=== PATIENT | male | born 1970 | race Caucasian/White ===

== ENCOUNTER 2017-08-30 18:29 | Inpatient (IN) | payer BC, OTHER ==
[~2017-08-30] VITALS: Ht 177.8 cm; Wt 63.5 kg
[2017-08-30 20:00] VITALS: BP 124/75
[2017-08-30] MEDS ORDERED: MIRALAX 17 GM POWD.PACK PO PRN (20:15)
[2017-08-30] MEDS ORDERED: diphenhydrAMINE 50 MG CAPSULE PO PRN (20:15)
[2017-08-30] MEDS ORDERED: LOPERAMIDE HCL 2 MG CAPSULE PO PRN ×2 (20:15)
[2017-08-30] MEDS ORDERED: LORAZEPAM 1 MG TABLET PO PRN ×2 (20:15)
[2017-08-30] MEDS ORDERED: BUPRENORPHINE HCL 2 MG TAB.SUBL SL PRN (20:15)
[2017-08-30] MEDS ORDERED: ACETAMINOPHEN 325 MG TABLET PO PRN (20:15)
[2017-08-30] MEDS ORDERED: MAGNESIUM HYDROXIDE 30 ML LIQUID UDC PO PRN (20:15)
--- NOTE | 2017-08-30 20:25 | NUR ---
Admission Note Patient is a 47-year-old, male, arrived to the floor at 1927 to be admitted for medically supervised withdrawal from Alcohol (Early) and Opiates (Heroin). The patient appears intoxicated from Heroin as he stated that he smoked 1.5 gm today at 1600. However, he is not intoxicated from Alcohol, with last drink yesterday at 2200, had 90 ml of Early. Patient verbalized that he is starting to experience withdrawal symptoms from Alcohol use, with symptoms assessed as follows: flushed skin, increasing anxiety, photosensitivity, tremors and feeling of fatigue. Patient appears calm but noted to be melancholic, isolative and in a depressed mood, tearfully saying I hope I can do this. Its making me anxious. My family is getting affected by my addiction. My is starting to give up on me and I fear that she might leave and take my kids away. I am just done. Pt is AAOx4. The patient states that withdrawal symptoms include "anxiety, fatigue, restless legs, emotional volatility, goosebumps, nausea, vomiting, teary eyes and photo sensitivity." Patient denies any history of seizures, but stated that he experienced multiple episodes of delirium and blackouts from drinking alcohol. He could not recall the exact date of his last blackout and delirium but said that it happened in this month of August. Patient also informed that he has been to multiple detox and treatment centers, verbalized about 40 times. He stated that he only could recall the last 3 facilities where he was from: 1) [facility] in [facility] to June 2017 x 25 days, 2) [facility] in [place], [place]--February 2017 x 1 week and in January 2017 x 1. Patient explained that after getting discharged from [facility] in June of this year, he went to [facility] and relapsed after about 1-2 weeks in IOP. He tried to quit on his own after using for about 1 week but he said that he could only last a maximum of 3 days being sober. So, per patient, since mid to end July, substance use are as follows: 1. Alcohol: Early- Patient stated that he is drinking about 750 ml or a fifth of Early daily for 3-4 weeks. He had his first drink at age 11, citing influence from peers. He stated that he tried various types of alcohol, including Vodka and Tequila, but eventually developed a liking to Early. Last drink was on 08/19/2017 at 2200, 90 ml of Early. 2. Heroin- Patient stated that he first used at age 16. He verbalized that he first tried this substance to fit in because my friends have been using it. For the past 3-4 weeks, he has been using 1.5-2 gm via oral inhalation daily, last use was today, 08/30/2017 at 1600. 1.5 gm via oral inhalation. 3. Cannabis-Patient stated that he first used at age 11. Patient stated that he uses via oral inhalation daily, about 1-1.5 gm, for the past 3-4 weeks. Last use was today, 08/30/2017 at 1700, 1 gm via oral inhalation. Patient verbalized that none of his immediate family members have substance use disorders. Patient stated the he never used needles at all related to his Heroin use. He stated that he only smoked it. Patient stated that his Primary Care Physician is Dr. Adler at [place], [place]. He is seeking treatment today because "" I think I am at the point of my life where I should be looking at my future, about growing old healthy and being there for my and kids. In addition patient also fears that if he continues with his substance use, he would lose his family: "My gave me an ultimatum that if I dont quit, she will leave me and take the kids away. Patient also said that he wants to stop using everything because using the substances and drinking are giving him more anxiety due to ruined relationships with friends and family. His longest sobriety was 45 days achieved in 2007. Patient verbalized that he is interested in going to a treatment center after his stay at [facility]. Patient's main support system are his and some family. Vital signs are taken and as follows: BP: 133/94, HR: 87, RR: 20, SpO2: 98%, Temp: 98.7. Pulse is palpable and regular. Respirations are even and unlabored. Lung sounds clear. Bowel sounds active x4 quadrants. Last bowel movement was in the morning of today, 08/30/2017. Per patient, his bowel movement is mostly every day. No abdominal pain reported. Skin is intact. Pt follows a regular diet at home. NKA. Full Code. Height is 5'10", 140 lbs per standing scale. Patient stated that he smokes about 1 pack of [place] Ultra Lights daily. Patient stated that his medical history are Anxiety, Asthma and Kidney Stones (1986). Patient that he only has Proair HFA Inhaler as home med where the takes BID PRN for SOB. Educated patient about plan of care including detox, group therapy, individual therapy, and discharge planning. Encouraged patient to be open and honest and verbalized support for patient in her recovery. Upon admission to the floor, CIWA=13, COWS is deferred because of Heroin intoxication status. Dr. Oliva was at the unit and was able to assess the patient. Will continue to monitor.
--- NOTE | 2017-08-30 20:30 | NUR ---
Additional Medical History Patient was further asked of his medical history and he verbalized that though he has no history of seizures, he experienced multiple withdrawal-induced delirium from drinking Alcohol ([place]) and as well as blackouts.
[2017-08-30] MEDS ORDERED: ALBU8.5H8 IH (21:26)
[2017-08-30] MEDS: MULTIVITAMINS,THERAPEUTIC TABLET PO SCH (21:27)
--- NOTE | 2017-08-30 21:30 | NUR ---
COWS deferred, only CIWA assessed Pt is still intoxicated from Heroin, having only administered the substance today at 1600. Pt was only assessed of CIWA=13, with increasing anxiety, tremors, photosensitivity and tremors noted.
[2017-08-30 22:46] LABS: BASOPHILS # (AUTO) 0.1 K/uL (0.0-8.0); BASOPHILS % (AUTO) 1.1 % (0.0-2.0); EOSINOPHILS # (AUTO) 0.2 K/uL (0.0-0.7); HEMATOCRIT 41.9 % (36.7-47.1); LYMPHOCYTES # (AUTO) 1.9 K/uL (20.0-40.0); LYMPHOCYTES % (AUTO) 32.1 % (20.5-51.5); MEAN CORPUSCULAR HEMOGLOBIN 30.4 uug (23.8-33.4); MEAN CORPUSCULAR HGB CONC 33 g/dL (32.5-36.3); MEAN CORPUSCULAR VOLUME 90.9 fL (73.0-96.2); MONOCYTES # (AUTO) 0.5 K/uL (2.0-10.0); MONOCYTES % (AUTO) 8.4 % (0.0-11.0); NEUTROPHILS # (AUTO) 3.2 K/uL (1.8-8.9); NEUTROPHILS % (AUTO) 55.4 % (38.5-71.5); PLATELET COUNT (AUTO) 171 K/uL (152-348); RED BLOOD CELL COUNT(AUTO) 4.61 MIL/uL (4.06-5.63); WHITE BLOOD COUNT (AUTO) 5.8 K/uL (3.6-10.2)
[2017-08-30 22:53] LABS: ALANINE AMINOTRANSFERASE 18 U/L (16-63); ALKALINE PHOSPHATASE 58 U/L (50-136); AMYLASE 45 U/L (25-115); ASPARTATE AMINOTRANSFERASE 12 U/L (15-37); BILIRUBIN,TOTAL 0.3 mg/dL (0.2-1.0); CARBON DIOXIDE 28 mmol/L (21-32); CHLORIDE 106 mmol/L (98-107); CREATININE 0.8 mg/dL (0.6-1.3); GLUCOSE 85 mg/dL (74-106); LIPASE 94 U/L (73-393); MAGNESIUM 2.3 mg/dL (1.8-2.4); POTASSIUM 4.3 mmol/L (3.5-5.1); TOTAL PROTEIN, SERUM 6.2 g/dL (6.4-8.2); UREA NITROGEN, BLOOD 16 mg/dL (7-18)
[2017-08-30 23:01] LABS: ETHANOL < 3 MG/DL (0-0)
[2017-08-31] VITALS: BP 108/65
[2017-08-31] MEDS ORDERED: 5 DAY TAPER OF LORAZEPAM -SERENITY PROTOCOL PO PRN
--- NOTE | 2017-08-31 03:08 | NUR ---
RN note PRN Ativan Patient c/o increasing anxiety, easy agitation, tremors and photosensitivity. CIWA=13. Administered Ativan 2 mg PO PRN as ordered. Will reassess.
[2017-08-31 03:55] LABS: *AMPHETAMINE, URINE NEGATIVE (NEGATIVE); *BARBITURATE, URINE NEGATIVE (NEGATIVE); *CANNABINOID, URINE POSITIVE (NEGATIVE); *COCCAINE, URINE NEGATIVE (NEGATIVE); *OPIATE, URINE POSITIVE (NEGATIVE); *PHENCYCLIDINE SCREEN,URINE NEGATIVE (NEGATIVE)
[2017-08-31 04:00] VITALS: BP 97/62
--- NOTE | 2017-08-31 04:05 | NUR ---
RN note Ativan reassess Patient verbalized that his anxiety level has decreased and verbalized: "I feel better now. I am not anxious as much." CIWA=11. Addendum: 08/31/17 at 0547 by PHILIP MEJÍA RN Correction: CIWA=10
--- NOTE | 2017-08-31 07:16 | NUR ---
End of Shift Patient continues to have tremors, with anxiety, difficulty concentrating and noted to be isolative, melancholic and in depressed mood. Patient with restless legs and c/o fatigue. Patient also noted to be disheveled and with strong body odor. Encouraged patient to take a shower this morning. Patient verbalized: Im not in the mood to do anything today. I feel low. Provided education on importance of adhering to the plan of care. Fall, universal, seizure and safety prec in place the whole shift. Call light within reach. Latest COWS=5, CIWA=10, slept for 6 hours. Endorsed to AM shift nurse for continuity of care.
--- NOTE | 2017-08-31 07:30 | NUR ---
Start of Shift Pt. is a 47 y/o male admitted for the medically managed withdrawal from ETOH and Opiates. Pt. placed on a 5 day subutex and a 5 day ativan taper to manage withdrawal symptoms which is set to start this morning. Endorse from previous shift that pt. presented with anxiety, restlessness, tremors, difficulty concentrating, malodorous with a sad affect. Received pt. in room laying in bed with eyes closed. Pt. breathes are even and symmetrical with no signs on SOB noted. Pt.'s room is cluttered with belongings, and food containers. Pt. responds to name but just goes back to sleep. Last COW's 5 and CIWA 10. Pt. slept for 7 hours. Safety measures in place. Will continue to monitor pt.'s behavior for safety.
[2017-08-31 08:00] VITALS: BP 92/50
--- NOTE | 2017-08-31 08:00 | NUR ---
COW's/CIWA Assessment COW's 5, CIWA 9. Pt. presents with anxiety, mild aches, flush facial skin, and some light sensitivity. Pt. states that he still doesn't feel bad enough to want his subutex. Pt. did comply however with his Ativan and the rest of his mediation regiment. Will continue to monitor pt.'s behavior for safety.
[2017-08-31] MEDS: BUPRENORPHINE HCL 2 MG TAB.SUBL SL SCH ×4 (09:00→22:00)
[2017-08-31] MEDS: DOCUSATE SODIUM 250 MG CAPSULE PO SCH (09:00)
[2017-08-31] MEDS ORDERED: TUBERCULIN,PURIF.PROT.DERIV. 5 TU/0.1 ML TEST ID ONE (09:00)
[2017-08-31] MEDS: LORAZEPAM 1 MG TABLET PO SCH ×4 (09:43→20:17)
[2017-08-31] MEDS: MULTIVITAMINS,THERAPEUTIC TABLET PO SCH (09:43)
[2017-08-31 12:00] VITALS: BP 102/67
--- NOTE | 2017-08-31 12:00 | NUR ---
COW's/CIWA Assessment COW's 7, CIWA 9. Pt. presents with anxiety, mild aches, flush facial skin, fine hand tremors, and stomach cramps. Pt. offered PRN's and scheduled medications but refused both. aware. Will continue to monitor pt.'s behavior for safety.
--- NOTE | 2017-08-31 13:50 | NUR ---
Medication Refusal Pt. laying in bed with eyes closed. no signs of SOB noted. Pt. offered scheduled Ativan 2mg, and Subutex 4mg at this time but refused both medications. Pt. states "I feel a little crappy but not in a way I can describe. I still feel the effects of the last Ativan." Pt. has been laying in bed the entire shift. MD aware of medication refusal. Will continue to monitor pt.'s behavior for safety.
[2017-08-31] MEDS ORDERED: ALBUTEROL SULFATE 2.5 MG/ 0.5 ML NEBU NEB PRN (14:30)
[2017-08-31 16:00] VITALS: BP 98/60
[2017-08-31] MEDS ORDERED: 5 DAY TAPER BUPRENORPHINE -SERENITY PROTOCOL SL PRN (16:00)
--- NOTE | 2017-08-31 16:00 | NUR ---
COW's/CIWA Assessment COW's 10, CIWA 12. Pt. presents with anxiety, mild aches, flush facial skin, fine hand tremors, and stomach cramps. Pt. offered PRN's and scheduled medications but refused his subutex only and took his ativan. Pt. states that he's afraid he doesn't feel bad enough to need subutex. Pt. educted on medication regiment but still he refused his subutex. aware. Will continue to monitor pt.'s behavior for safety.
--- NOTE | 2017-08-31 19:12 | NUR ---
End of Shift Pt. is a 47 y/o male admitted for the medically managed withdrawal from ETOH and Opiates. Pt. placed on a 5 day subutex and a 5 day ativan taper to manage withdrawal symptoms which is set to start this morning. Throughout shift pt. presented with anxiety, restlessness, tremors, difficulty concentrating, malodorous with a sad affect, light sensitivity, and stomach cramps. Pt. remained in room sleeping for the majority of the shift, and refused Subutex during the entire shift stating that he was not yet sick enough to want it. Last COW's 10 and CIWA 12. No PRN's given during shift. Safety measures in place. Will endorse pt.'s behavior to oncoming shift.
[2017-08-31 20:00] VITALS: BP 108/70
--- NOTE | 2017-08-31 20:00 | NUR ---
Start of Shift Pt is a 47 year old male admitted for ETOH/Heroin withdrawal placed on a 5 Ativan taper and 5 day Subutex taper. At time of assessment, pt presents in room, in bed, appears flushed, skin clammy, sweaty, is odorous, reports anxiety, worried demeanor, restlessness, light sensitivity, difficulty concentrating. CIWA 12, COWS 9 scheduled medications due. Safety measures in place, will continue to monitor.
--- NOTE | 2017-08-31 21:30 | NUR ---
Subutex Refusal Pt refused scheduled Subutex. Pt reports, "I don't want to take the Subutex yet. If I do I'll get sick, and I don't want to feel that way". COWS 9, Pt was educated on medications regimen and risks/benefits scheduled medications. However, pt continued to refuse. safety measures in place, will continue to monitor.
[2017-09-01] VITALS: BP 102/69
--- NOTE | 2017-09-01 | NUR ---
CIWA/COWS deferred due to pt sleeping, to be assess while pt is awake as ordered. Pt is in bed, sleeping, respirations even/unlabored. Safety measures in place, will continue to monitor.
[2017-09-01] MEDS: HYDROXYZINE PAMOATE 25 MG CAPSULE PO PRN ×2 (03:34→13:09)
[2017-09-01] MEDS: METHOCARBAMOL 750 MG TABLET PO PRN ×2 (03:36→13:09)
[2017-09-01 03:40] VITALS: BP 100/79
--- NOTE | 2017-09-01 03:40 | NUR ---
COWS/CIWA COWS 8 & CIWA 9 - Pt reported feeling anxious, body aches 5/10, skin clammy and flushed with tremors noted. Pt requested Vistaril 25mg and Robaxin 750mg- medications administered. Safety measures in place, will continue to monitor.
--- NOTE | 2017-09-01 04:40 | NUR ---
COWS/CIWA Upon reassessment, pt is noted to be sleeping, respirations even/unlabored. Safety measures in place, will continue to monitor.
--- NOTE | 2017-09-01 07:20 | NUR ---
End of Shift Pt is a 47 year old male admitted for ETOH/Heroin withdrawal placed on a 5 Ativan taper and 5 day Subutex taper. During shift, pt presented in room in be all throughout shift, appeared flushed, skin clammy, sweaty, odorous, reports anxiety, worried demeanor, restlessness, light sensitivity, difficulty concentrating, at 2000 CIWA 12, COWS 9, scheduled medications administered, however pt refused scheduled Subutex pt was educated on risks/benefits of medications. At 0340, Robaxin 750mg PRN and Vistaril 25mg PRN administered. Pt slept for 9 hours, intake of 800 ml and voids x2. Safety measures in place, endorsed to day shift nurse.
--- NOTE | 2017-09-01 07:25 | NUR ---
Start of Shift Note Pt. is a 47 y/o male admitted for the medically managed withdrawal from ETOH and opiates. Pt. was placed on a 5 day subutex and ativan taper to managed withdrawal symptoms. Pt. is on his second day of his taper but refused his Subutex taper yesterday because he was afraid of precipitated withdrawals. Endorse pt. presented during previous shift with flushed skin, diaphoresis, odorous, anxiety, restlessness, light sensitivity, and difficulty concentrating. Pt.s last COWs 9 and CIWA of 12 at 1999. PRN Vistaril, and Robaxin given during previous shift. Received pt. in room. Pt. laying in bed with eyes closed. No signs of SOB noted. Safety measures in place. Will continue to monitor pt.s behavior for safety.
[2017-09-01 08:00] VITALS: BP 114/69
--- NOTE | 2017-09-01 08:00 | NUR ---
COW's/CIWA assessment COW's 10. CIWA 11. Pt. laying in bed with eyes closed. Pt. presents with flushed skin, restlessness, fine hand tremors, piloerection, and diaphoresis. Pt. reports mild body aches and some increased anxiety. Pt. states he is willing to take his Ativan dose as ordered but is refusing the Subutex still. Pt. state " I know my body and I know if I take a Subutex now I'll go into precipitated withdrawals." Pt. educated on medication regiment and treatment plan. Pt. states he is willing to take his next dose of Subutex at 1300 today. aware. Will continue to monitor pt.'s behavior for safety.
[2017-09-01] MEDS: MULTIVITAMINS,THERAPEUTIC TABLET PO SCH (08:30)
[2017-09-01] MEDS: LORAZEPAM 1 MG TABLET PO SCH ×3 (08:31→21:24)
[2017-09-01] MEDS: BUPRENORPHINE HCL 2 MG TAB.SUBL SL SCH ×3 (08:56→22:00)
[2017-09-01] MEDS: DOCUSATE SODIUM 250 MG CAPSULE PO SCH (08:56)
[2017-09-01 10:08] LABS: HEPATITIS B SURFACE AG Negative (Negative)
[2017-09-01 12:00] VITALS: BP 143/104
--- NOTE | 2017-09-01 12:00 | NUR ---
COW's/CIWA assessment COW's 13. CIWA 14. Pt. in room pacing. Pt. presents with flushed skin, restlessness, fine hand tremors, piloerection, and diaphoresis. Pt. reports mild body aches and some increased anxiety. Pt. states that he will comply with all medications now. Will administer taper as ordered. Will continue to monitor pt.'s behavior for safety.
[2017-09-01] MEDS: DICYCLOMINE HCL 20 MG TABLET PO PRN ×2 (13:09→21:27)
[2017-09-01] MEDS: CLONIDINE HCL 0.1 MG TABLET PO PRN (13:09)
--- NOTE | 2017-09-01 13:09 | NUR ---
PRN Medications Pt. in room pacing complaining of muscle aches and anxiety. Pt. states "I feel like my skin is crawling and I feel like crap." At this time gave pt. PRN Vistaril, Bentyl, Robaxin, and Clonidine. Will continue to monitor pt. for medication effectiveness and safety.
--- NOTE | 2017-09-01 13:56 | NUR ---
PRN Medication Re-Assessment Pt. in room laying down with his eyes closed. Pt. states that he does feel better but not by much. He still reports anxiety, restlessness, and body aches. Pt. states however that now he is ready to begin taking his subutex. Will administer as ordered. Will continue to monitor pt.'s behavior for safety.
[2017-09-01 16:00] VITALS: BP 116/78
--- NOTE | 2017-09-01 16:00 | NUR ---
COW's/CIWA assessment COW's 15. CIWA 15. Pt. in room pacing. Pt. presents with flushed skin, restlessness, fine hand tremors, and diaphoresis. Pt. reports severe body aches and increased anxiety. Pt.compliant with last Subutex and Ativan doses of his tapers. Pt. currently prefers to stay in his bed. Will continue to monitor pt.'s behavior for safety
[2017-09-01] MEDS: IBUPROFEN 600 MG TABLET PO PRN (17:42)
--- NOTE | 2017-09-01 17:42 | NUR ---
PRN Medication Pt. in room complaining of 7/10 generalized body pain. Pt. given Motrin 600mg P.O. at this time. Will continue to monitor pt.'s behavior for medication effectiveness and safety.
[2017-09-01] MEDS ORDERED: BUPRENORPHINE HCL 2 MG TAB.SUBL SL ONE (18:30)
--- NOTE | 2017-09-01 18:35 | NUR ---
COW's Assessment Cow's 18. Pt. in room complaining of sever body aches, anxiety, restlessness and irritability. Pt. presents with flushed skin, constantly fidgeting, yawning and diaphoresis. MD aware and ordered Subutex 4mg X1 to be given now. Will continue to monitor pt. for safety.
--- NOTE | 2017-09-01 18:36 | NUR ---
PRN Medication/Re-Assessment Pt. still complaining of severe body aches and generalized body pain 10/17. Motrin not effective. called and received a 1 time dose of Subutex 4mg to be given to the pt. now. Subutex administered. Pt.'s current COW's at 18. Will continue to monitor pt. for medication effectiveness and safety.
--- NOTE | 2017-09-01 19:09 | NUR ---
End of Shift Note Pt. is a 47 y/o male admitted for the medically managed withdrawal from ETOH and opiates. Pt. was placed on a 5 day subutex and ativan taper to managed withdrawal symptoms. Pt. is on his second day of his taper but refused his first dose of subutex this morning. Pt. became compliant with his medication regiment as his symptoms became worst. Taking both the 1500 ativan and subutex dose. PRN Clonidine, Robaxin, Vistaril, Motrin and Bentyl where given to manage withdrawal symptoms. Pt. continue to complain of sever generalized body pain. made aware and ordered a one time dose of Subutex 4mg that was given at 1836. Throughout shift pt. presented with flushed skin, diaphoresis, piloerection, anxiety, restlessness, severe body aches, congestion and difficulty concentrating. Pt.s last COWs 18 at 1835 and CIWA of 15 at 1600. Safety measures in place. Will endorse pt.s behavior to oncoming shift.
--- NOTE | 2017-09-01 19:30 | NUR ---
Start of Shift Patient Received. Per endorsement, patient continues on 5 day Ativan and 5 day Subutex taper. Patient has been noted to be refusing ordered Subutex medication, he took his first dose of Subutex today at 1500. A second dose of Subutex was given at 1840. He was reported to be isolative to room and non compliant with group and social activities. Upon rounds patient is noted in his room with eyes closed. Breathing even and non labored. Patients room is noted to be odorous, unkept, dirty finger nails, food and drinks noted throughout the room. One time dose of Subutex 4mg noted to be effective in minimizing signs and symptoms of withdrawal. All needs attended to promptly. Will continue plan of care as ordered.
[2017-09-01 21:20] VITALS: BP 110/85
[2017-09-01] MEDS: ONDANSETRON ODT 4 MG TAB.RAPDIS SL PRN (21:27)
--- NOTE | 2017-09-01 21:30 | NUR ---
PRN Medication Administration Patient is requesting for PRN Zofran due to ordered Subutex cause nausea. Patient is also reporting increased stomach cramps. PRN Zofran and Bentyl administered. Will continue to monitor.
--- NOTE | 2017-09-01 22:00 | NUR ---
PRN Medication Reassessment Patient was given routine order of Subutex and able to tolerate well. PRN Zofran effective in minimizing nausea. Patient verbalized "I dont understand why Im not getting routine Gabapentin. I take 400mg three times a day. I haven't received any doses. That's what helps my restless legs." relayed to CN to relay to MD. Patient is also verbalizing "I need something for sleep because I haven't been sleeping well." Patient verbalized of taking Remeron 15mg. Relayed to Psychiatrist with new order of Remeron 15mg QHS. Will administer accordingly.
[2017-09-01] MEDS: MIRTAZAPINE 15 MG TABLET PO SCH (23:52)
[2017-09-02] VITALS (7 sets, daily range): BP systolic 98–130; BP diastolic 54–85
[2017-09-02] MEDS: CLONIDINE HCL 0.1 MG TABLET PO PRN ×2 (01:08→23:13)
[2017-09-02] MEDS: HYDROXYZINE PAMOATE 25 MG CAPSULE PO PRN ×2 (01:08→23:12)
[2017-09-02] MEDS: METHOCARBAMOL 750 MG TABLET PO PRN (01:08)
--- NOTE | 2017-09-02 01:10 | NUR ---
PRN Medication Administration Patient is noted verbalizing increased chills and sweats, increased anxiety, and muscle aches. PRN Robaxin, Clonidine, and Vistaril administered. Will continue to monitor.
[2017-09-02] MEDS: MAG HYDROX/AL HYDROX/SIMETH 30 ML LIQUID UDC PO PRN (01:55)
[2017-09-02] MEDS: IBUPROFEN 600 MG TABLET PO PRN (01:59)
--- NOTE | 2017-09-02 02:05 | NUR ---
PRN Medication Reassessment/PRN Medication Administration Patient is noted verbalizing increased heart burn and pain 6/10 to bilateral knees. PRN Robaxin, clonidine, and Vistaril noted not effective. PRN Motrin and Maalox administered. Will continue to monitor.
--- NOTE | 2017-09-02 03:00 | NUR ---
PRN medication Reassessment Patient is noted in bed, awake and is able to verbalize "the medication helped with the heartburn and helped to minimize pain." PRN Motrin and Maalox noted to be effective. Will continue to monitor.
[2017-09-02] MEDS ORDERED: LORAZEPAM 1 MG TABLET PO ONE (04:15)
--- NOTE | 2017-09-02 04:34 | NUR ---
PRN Medication Administration Patient is noted verbalizing increased anxiety, restlessness, agitation, tremulous, light sensitivity, sweats and chills. Relayed to MD with new order for one time dose of Ativan 2mg. Will continue to monitor.
--- NOTE | 2017-09-02 05:29 | NUR ---
PRN Medication Reassessment Patient is noted awake and requesting coffee. educated patient on caffine possibly increased anxiety. Patient verbalized "its not going to matter that I got the Ativan now because mann been awake this whole time. Im just going to stay up." explained to patient that medication was gien to him to help to make him comfortable and patient stated "The medication helped take the edge off. but I'm just going to stay awake." PRN Ativan 2mg noted to be effective. Will continue to monitor.
--- NOTE | 2017-09-02 07:35 | NUR ---
End of Shift Patient is noted in his room, awake, alert and verbally responsive. Breathing even and non labored. Patient continues on modified Subutex taper and modified Ativan taper. patient received PRN Zofran, Bentyl, Clonidine, Vistaril, Robaxin, Maalox, Motrin, and a onetime dose of Ativan 2mg due to elevated CIWA. Medications noted to be intermittently effective. Patient was educated on drinking caffeine after receiving medications and patient was noted to state "its not going to matter that I got the Ativan now because mann been awake this whole time. Im just going to stay up." Last noted COWS 7 and CIWA 8. Patient noted to sleep a total of 4 hours. All needs attended to promptly. Will continue plan of care as ordered.
--- NOTE | 2017-09-02 07:52 | NUR ---
START OF SHIFT Rcvd endorse from ongoing nurse, client is in room, he sounds asleep, easy to arouse, he appears disheveled. flushed face, clammy skin, and goosebump noted. He stated, "I have not sleep, so just please let me sleep, I'll answer your questions later." PRN medications administered overnight Zofran 4mg SL for nausea, Bentyl 20mg PO for abdominal spasms, Clonidine 0.1mg PO for anxiety, Vistaril 25mg PO for anxiety, Robaxin 750mg PO for myalgia, Ativan 2mg PO for anxiety, Maalox 30mL PO for heartburn, Motrin 600mg PO for pain to bilateral knees all noted per protocol. Client is on seizure precautions. Side rails x 1 up (R side), he said in a pressured voice, "Do not touch anything, just let me sleep." Call light within reach. Will continue to monitor.
[2017-09-02] MEDS ORDERED: ENSURE WITH FIBER 237 ML LIQUID (CHOCOLATE) PO SCH (08:00)
[2017-09-02] MEDS: DOCUSATE SODIUM 250 MG CAPSULE PO SCH (09:00)
[2017-09-02] MEDS ORDERED: BUPRENORPHINE HCL 2 MG TAB.SUBL SL SCH (09:00)
[2017-09-02] MEDS: LORAZEPAM 1 MG TABLET PO SCH ×4 (09:16→21:05)
[2017-09-02] MEDS: MULTIVITAMINS,THERAPEUTIC TABLET PO SCH (09:16)
--- NOTE | 2017-09-02 09:16 | NUR ---
CIWA 16/COWS 16 Client appears disheveled, strong body odor, undernourished, avoidant gaze, temporal waste, he is not wearing upper denture, he stated, "No, that one bothers me, I'm waiting for another one that fits." Client reports anxiety, agitation, restlessness, tremor, nausea, abdominal cramps, hypervigilance, sense of panic, sweats, cold,chills, headache, restless legs, generalized body discomfort, and fatigue. Ativan 1mg PO administered, he will take Subutex 4mg SL when he comes back from the patio. Call light within reach
--- NOTE | 2017-09-02 09:45 | NUR ---
Zero induration noted at L forearm PPD site.
--- NOTE | 2017-09-02 12:52 | NUR ---
CIWA 15 /COWS 15 Client continues to present with anxiety, agitation, depressed mood, flat affect, avoidant gaze, clammy skin, he reports nausea, headache, generalized body aches, sense of panic, restless legs, decreased acetate, nausea, stomach cramps, and fatigue. Ativan 1mg PO administered. Call light within reach
[2017-09-02] MEDS: BUPRENORPHINE HCL 2 MG TAB.SUBL SL SCH ×2 (16:16→21:05)
--- NOTE | 2017-09-02 16:24 | NUR ---
CIWA 14 /COWS 15 Client continues to present with anxiety, agitation, he tends to isolate in his room, clammy skin, he reports nausea, headache, generalized body aches, sense of panic, restless legs, nausea, stomach cramps, and lack of pleasure on daily activities. Ativan 1mg PO administered. Call light within reach
--- NOTE | 2017-09-02 19:23 | NUR ---
END OF SHIFT Endorse client to incoming nurse, client is in room, he is a/o x 4, he continues to present with depressed mood, flat affect, anxiety, irritability, anhedonia, restless legs, and fatigue. Last CIWA 15 @ 1600. Client needs encouragement to attend group therapy. Adequate PO fluid intake 2540mL, void x 6, stool x 1. Client consumes 50-75% of meals. Seizure precautions. Call light within reach.
--- NOTE | 2017-09-02 19:30 | NUR ---
START OF SHIFT Pt is a 47 y/o male admitted on 08/30/17 for ETOH and opiate withdrawal. Pt to continue a 5 day Ativan and 5 day Subutex taper. Upon rounds Pt presented with depressed mood, flat affect, anxiety, irritability, anhedonia, restless legs, and fatigue. Last CIWA 14 COWS 15. Pt stated, "I am unhappy with the taper I am on" and "I am not motivated to get clean right now." Pt is a high risk for AMA. Charge nurse was made aware. Will endorse to day shift and administration. Scheduled medication due. Safety measures in place. Call light within reach. Will continue to monitor.
[2017-09-02] MEDS ORDERED: PRAMIPEXOLE 1 MG TABLET PO PRN (20:45)
[2017-09-02] MEDS: MIRTAZAPINE 15 MG TABLET PO SCH (21:05)
[2017-09-02] MEDS ORDERED: PRAMIPEXOLE 1 MG TABLET ONE (21:55)
--- NOTE | 2017-09-02 22:05 | NUR ---
PRN MIRAPEX ADMINISTRATION Pt requested medication for his restless legs. Safety measures in place. Call light within reach. Will continue to monitor.
--- NOTE | 2017-09-02 23:05 | NUR ---
PRN MIRAPEX REASSESSMENT Medication effective as verbalized per Pt. Safety measures in place. Call light within reach. Will continue to monitor.
[2017-09-02] MEDS: DICYCLOMINE HCL 20 MG TABLET PO PRN (23:12)
--- NOTE | 2017-09-02 23:12 | NUR ---
PRN BENTYL, CLONIDINE, VISTARIL, AND ZOFRAN ADMINISTRATION. Pt complain of stomach cramps, anxiety, agitation, and nausea. B/P 121/75. Safety measures in place. Call light within reach. Will continue to monitor.
[2017-09-02] MEDS: ONDANSETRON ODT 4 MG TAB.RAPDIS SL PRN (23:13)
--- NOTE | 2017-09-03 | NUR ---
CIWA/COWS AND VITALS DEFERRED Pt noted in bed with eyes closed, respirations even and unlabored. Pt refused vitals and CIWA/COWS unable to complete per order. Safety measures in place. Call light within reach. Will continue to monitor.
--- NOTE | 2017-09-03 00:12 | NUR ---
PRN BENTYL, CLONIDINE, VISTARIL, AND ZOFRAN REASSESSMENT Pt was found lying in bed with eyes closed, respirations even and unlabored. No restlessness or facial grimacing noted. Medication noted effective. Safety measures in place. Call light within reach. Will continue to monitor.
[2017-09-03] MEDS: ONDANSETRON ODT 4 MG TAB.RAPDIS SL PRN ×2 (00:15→00:17)
[2017-09-03] MEDS: METHOCARBAMOL 750 MG TABLET PO PRN (01:37)
[2017-09-03] MEDS: MAG HYDROX/AL HYDROX/SIMETH 30 ML LIQUID UDC PO PRN (01:37)
--- NOTE | 2017-09-03 01:37 | NUR ---
PRN MAALOX AND ROBAXIN Pt complains of indigestion and 4/10 body aches. PRN Maalox and Robaxin were administered. Safety measures in place. Call light within reach. Will continue to monitor.
[2017-09-03 01:46] VITALS: BP 99/60
--- NOTE | 2017-09-03 02:37 | NUR ---
PRN MAALOX AND ROBAXIN REASSESSMENT Pt found in lying in bed. Pt has eyes closed with even and unlabored respirations. No signs of facial grimacing or restlessness noted. Medications noted effective. Safety measures in place. Call light within reach. Will continue to monitor.
--- NOTE | 2017-09-03 04:32 | NUR ---
COWS and CIWA Patient is noted in bed with eyes closed. Breathing even and non labored. Patient refused vitals. COWS and CIWA not able to be completed as per order. Will continue to monitor.
--- NOTE | 2017-09-03 07:18 | NUR ---
END OF SHIFT Pt is a 47 y/o male admitted on 08/30/17 for ETOH and opiate withdrawal. Pt will continue a 5 day Ativan and 5 day Subutex taper. Pt presented with depressed mood, flat affect, anxiety, irritability, anhedonia, restless legs, difficulty falling asleep and fatigue. Pt stated, "I am unhappy with the taper I am on" and "I am not motivated to get clean right now." Pt is a high risk for AMA. Charge nurse was made aware. Scheduled medication given and PRN Mirapex, Bentyl, Clonidine, Robaxin, Vistaril, Maalox, and Zofran were administered, effective in S/S of withdrawal as verbalized by the Pt. Last CIWA 15 COWS 9. Pt slept 6.5 hours. Intake 1500 ml, void 1, stool 1. Safety measures in place. Call light within reach. Pt's needs have been met. Endorsed to day shift nurse.
--- NOTE | 2017-09-03 07:30 | NUR ---
Start of Shift Pt. is 47 y/o male admitted for the medically managed withdrawal from ETOH and Opiates. Pt. was placed on a 5 day Subutex and 5 day Ativan taper. Endorse from previous shift pt. continually presented with a depressed mood, flat affect, anxiety, irritability, anhedonia, restless legs, and fatigue. Received pt. in room. Pt. sitting in his chair wearing his bathrobe. Upon approach pt. is irritable, guarded with a flat affect. Pt. reports chills and increased anxiety. Multiple PRNs given during previous shift. Last COWs 9 and CIWA 15. Safety measures in place. Will continue to monitor pt.s behavior for safety.
[2017-09-03 08:00] VITALS: BP 132/76
[2017-09-03] MEDS: MULTIVITAMINS,THERAPEUTIC TABLET PO SCH (08:19)
[2017-09-03] MEDS: DOCUSATE SODIUM 250 MG CAPSULE PO SCH (08:25)
[2017-09-03] MEDS ORDERED: LORAZEPAM 1 MG TABLET PO SCH (09:00)
[2017-09-03] MEDS ORDERED: BUPRENORPHINE HCL 2 MG TAB.SUBL SL SCH (09:00)
--- NOTE | 2017-09-03 10:26 | NUR ---
AMA: Pt. states that he no longer wants to be here. Pt. states that he doesn't feel well but is able to describe his symptoms. Pt. states "I'll just take Suboxone at home I don't need to be here, I'm [age] years old I don't need any of this." Pt. educated on the risk and consequences of leaving AMA. Multiple staff members spoke with pt. regarding the risk of leaving AMA. Pt. still adamant about leaving. Pt. is A/O X 4 and denies SI, HI, VH, and AH. Vital signs WNL. notified. All belongings and medications returned to pt. Pt. given a list of community resources. Pt. escorted of unit at 1026 by staff.
[2017-09-04] MEDS ORDERED: BUPRENORPHINE HCL 2 MG TAB.SUBL SL SCH (09:00)
[2017-09-04] MEDS ORDERED: LORAZEPAM 1 MG TABLET PO SCH (09:00)
== END 2017-09-03 10:26 | disposition left against medical advice (07) | DRG 894 ==
LOC: SRC 18:29
PROVIDERS: ADMIT Family Medicine Addiction Medicine; ATTEND Family Medicine Addiction Medicine
PROC: HZ2ZZZZ Detoxification Services for Substance Abuse Treatment (ICD-10-PCS; principal; 2017-08-30)
PROC: HZ51ZZZ Individual Psychotherapy for Substance Abuse Treatment, Behavioral (ICD-10-PCS; 2017-09-01)
DX: F10.239 Alcohol dependence with withdrawal, unspecified (principal); F11.23 Opioid dependence with withdrawal; Y90.0 Blood alcohol level of less than 20 mg/100 ml; J45.20 Mild intermittent asthma, uncomplicated; F41.9 Anxiety disorder, unspecified; F17.210 Nicotine dependence, cigarettes, uncomplicated
CPT/HCPCS: 36415; 80307; 80349; 80361; 83690; 83735; 85025; 86592; 86705; 86803; 87340; 87806; G0480; Q0162

== ENCOUNTER 2017-12-13 09:49 | Inpatient (IN) | payer BC, OTHER ==
[~2017-12-13] VITALS: Ht 177.8 cm; Wt 62.6 kg
[~2017-12-13 09:49] MED LIST: ALBU8.5H8 IH
--- NOTE | 2017-12-13 21:00 | NUR ---
Pre-admission note Patient is a 47 year old male here at [facility] [place] for medically supervised ETOH, Benzos and Opioid withdrawal. Patient is alert oriented to time, place and situation. Patient is ambulatory with steady gait. Patient appears anxious, withdrawn, depressed, poor eye contact, and disheveled. Patient is presenting with withdrawal symptoms. Patient reports she was using ETOH, Xanax, Heroin, Suboxone and Marijuana since she left treatment in [facility] in [place]. Patient denies past medical history. Initial vitals sign: BP 113/62, P62, RR 16, O2 sat 96% on RA, T 98.3. Will continue plan of care upon arrival on unit.
--- NOTE | 2017-12-13 21:30 | NUR ---
Admission Note Patient is a 47 year old male admitted today 12/13/2017 at 2108. Patient is alert oriented x4, he is here at [facility] for medically supervised ETOH, Benzos and Opioid withdrawal. Patient reports he last use ETOH on 12/12/2017 and he was drinking 475 ml of bourbon whiskey for 3 weeks, he was also using Xanax PO 0.5 mg daily for the past 3 weeks, he was also using heroin (smoking) 1.5 gram daily for the past 3 weeks, patient was using Suboxone maintenance in between detox centers, and patient also smokes marijuana one gram daily for the past three weeks. Patient denies being intoxicated and is not experiencing withdrawal symptoms. Patient seems depressed, isolated, poor eye contact, withdrawn, worried and flat affect. CIWA and COWS assessment were deferred and will be further assessed when withdrawal symptoms are present. Patient denies a past medical history. Patient is a full code and has no known allergies. Patient follows a regular diet at home. Patient reports his typical withdrawal symptoms as follow: "My symptoms consist of nausea, vomiting, insomnia, depression, shakiness, irritable, anxiety, hot and colds and tremors." Patient denies seizures hx, cardiac induced complications, and withdrawal induced delirium. Patient denies any overdoses and blackouts in the past. He smokes a pack of cigarettes per day since he was 11 years old. Patient denies family history of substance abuse. Substance Abuse History: 1) ETOH: Patient has been drinking whiskey 475 ml PO daily for 3 weeks at this rate. Patient said he has been drinking since he was 10 years old. Patient stated his last drink was on 12/13/2017 evening. Patient has been using this drug for 37 years. 2) Xanax: Patient stated that he was using about 0.5 mg PO as a onetime dose he uses intermediate for anxiety. He first started using when he was 13 years old. Patient stated that his last use was today 12/13/2017 at 1200. Patient has been using this drug for 34 years. 3) Heroin: Patient stated that he was using 1.5 grams (smoking) daily for 3 weeks. He started using at the age of [age] years old. Patient stated that his last use was of 1.5 gram today 12/13/2017 at 1700. Patient has been using this drug for 20 years. 4) Suboxone: Patient stated he has been using Suboxone in between detox centers as a maintenance dose and he was using on and off 16mg PO, he started using at the age of [age] years old. He has been using this for 14 years, but in the past three weeks he only used once on 12/13/2017 at 1500. 5) Marijuana: Patient stated he has been using marijuana since he was 11 years old. Patient smokes 1 gram daily for 3 weeks. Patient last use was 12/13/2017 at 1500. Patient stated that he has been to multiple treatment centers including here at [facility] on August 2017, he said he has been to over 50 treatment centers. The last treatment center was [facility] in [place] 3 weeks ago (early November 2017) and was there for 5 days; and relapse right after discharged. Patient does not have a current physician and he denies seeing a psychiatrist. Patient stated he has a sponsor and also attends AA meetings in [facility]. Patient brought an inhaler and has been reconciled. When asked patient if he has history of asthma or respiratory problems he said he does not and he only uses inhaler in case of an emergency when he smokes. Patient does not recall last time he used the inhaler. Patient is currently unemployed and his highest level of education was one year and a half of college education credits. When the patient was asked whats going to be different this time, he stated "I'm going to stick to the residential treatment center plan; I want to stay away for a while to help me stay sober. I want a change; I want to be around my kids." Patient denies facing legal consequences as a result of his drug use, but admits he has loss multiple jobs as a result of his addiction. Patients stated his motivators to change are his 15 month old baby boy and his 6 year old daughter. His support system is his , family, sponsor and friends. Patient is 5'10" and weights 138 lbs per standing scale. Patient's skin is intact, dry, and warm to touch. Capillary refill is <3 seconds. PERRLA is present with pupils at 4 mm bilaterally. Lungs are clear to auscultation bilaterally. Abdomen is soft and non-distended and bowel sounds are present in all 4 quadrants. Patient reports that his last bowel movement was about 12/13/2017 morning. Initial vital signs are as follows: BP 113/62, P62, RR 16, O2 sat 96% on RA, T 98.3, and no pain. Breathing is even and unlabored. No signs and symptoms of respiratory distress. Patient was oriented to unit at 2108. Patient was provided instructions regarding unit policies and rules. Patient did not provide urine sample at intake office and will let nurse know when he needs to void, lab will be collected on unit. MRSA swab was ordered. Fall and seizure precautions initiated and maintained. Safety measures in place, bed in low and locked position, side rails up x2, and call light within reach. Will continue to monitor.
[2017-12-13] MEDS ORDERED: ONDANSETRON 4 MG/2 ML VIAL IM PRN (22:00)
[2017-12-13] MEDS ORDERED: LOPERAMIDE HCL 2 MG CAPSULE PO PRN ×2 (22:00)
[2017-12-13] MEDS ORDERED: MAG HYDROX/AL HYDROX/SIMETH 30 ML LIQUID UDC PO PRN (22:00)
[2017-12-13] MEDS ORDERED: IBUPROFEN 600 MG TABLET PO PRN (22:00)
[2017-12-13] MEDS ORDERED: BUPRENORPHINE HCL 2 MG TAB.SUBL SL PRN (22:00)
[2017-12-13] MEDS ORDERED: DIAZEPAM 10 MG TABLET PO PRN ×2 (22:00)
[2017-12-13] MEDS ORDERED: MAGNESIUM HYDROXIDE 30 ML LIQUID UDC PO PRN (22:00)
[2017-12-13] MEDS ORDERED: LORAZEPAM 2 MG/1 ML VIAL IM PRN (22:00)
[2017-12-13] MEDS ORDERED: THIAMINE HCL 200 MG/2 ML VIAL IM ONE (22:00)
[2017-12-13] MEDS ORDERED: DIAZEPAM 5 MG TABLET PO PRN (22:00)
[2017-12-13 22:49] LABS: BASOPHILS # (AUTO) 0.1 K/uL (0.0-8.0); BASOPHILS % (AUTO) 1.7 % (0.0-2.0); EOSINOPHILS # (AUTO) 0.2 K/uL (0.0-0.7); EOSINOPHILS % (AUTO) 3.8 % (0.0-7.0); HEMATOCRIT 40.7 % (36.7-47.1); HEMOGLOBIN 13.8 g/dL (12.5-16.3); LYMPHOCYTES # (AUTO) 1.9 K/uL (20.0-40.0); LYMPHOCYTES % (AUTO) 34.7 % (20.5-51.5); MEAN CORPUSCULAR HEMOGLOBIN 30.5 uug (23.8-33.4); MEAN CORPUSCULAR HGB CONC 34 g/dL (32.5-36.3); MEAN CORPUSCULAR VOLUME 90.4 fL (73.0-96.2); MONOCYTES # (AUTO) 0.4 K/uL (2.0-10.0); MONOCYTES % (AUTO) 7.8 % (0.0-11.0); NEUTROPHILS # (AUTO) 2.9 K/uL (1.8-8.9); PLATELET COUNT (AUTO) 153 K/uL (152-348); RED BLOOD CELL COUNT(AUTO) 4.51 MIL/uL (4.06-5.63); WHITE BLOOD COUNT (AUTO) 5.5 K/uL (3.6-10.2)
[2017-12-13 22:53] LABS: ALANINE AMINOTRANSFERASE 18 U/L (16-63); ALKALINE PHOSPHATASE 58 U/L (50-136); AMYLASE 45 U/L (25-115); ASPARTATE AMINOTRANSFERASE 10 U/L (15-37); BILIRUBIN,TOTAL 0.4 mg/dL (0.2-1.0); CARBON DIOXIDE 33 mmol/L (21-32); CHLORIDE 103 mmol/L (98-107); CREATININE 0.8 mg/dL (0.6-1.3); GLUCOSE 113 mg/dL (74-106); LIPASE 85 U/L (73-393); POTASSIUM 3.9 mmol/L (3.5-5.1); TOTAL PROTEIN, SERUM 6.3 g/dL (6.4-8.2); UREA NITROGEN, BLOOD 11 mg/dL (7-18)
[2017-12-13 22:56] LABS: ETHANOL < 3 MG/DL (0-0)
[2017-12-13 23:31] LABS: THYROID STIMULATING HORMONE 1.822 mIU/mL (0.358-3.740)
[2017-12-14] VITALS: BP 91/54
--- NOTE | 2017-12-14 | NUR ---
CIWA and COWS Assessment Patient is presenting with anxiety, agitation, chills and tremors. Patients CIWA is 8 and COWS is 8. Patient is breathing even and unlabored and no evidence of distress. Safety measures in place will continue to monitor.
--- NOTE | 2017-12-14 | NUR ---
O2 Saturation Intervention Patients O2 saturation is 91%, head of the bed was elevated on arrival and patient brought the HOB to a supine position, education was provided about his oxygen level, but he refused to leave the HOB elevated. Patient refuses O2 therapy at this time, patient denies SOB and no acute distress noted. Will continue to monitor.
[2017-12-14 00:22] LABS: *AMPHETAMINE, URINE NEGATIVE (NEGATIVE); *BARBITURATE, URINE NEGATIVE (NEGATIVE); *CANNABINOID, URINE POSITIVE (NEGATIVE); *COCCAINE, URINE NEGATIVE (NEGATIVE); *OPIATE, URINE POSITIVE (NEGATIVE); *PHENCYCLIDINE SCREEN,URINE NEGATIVE (NEGATIVE)
[2017-12-14] MEDS: diphenhydrAMINE 50 MG CAPSULE PO PRN ×2 (00:25→20:00)
--- NOTE | 2017-12-14 00:25 | NUR ---
PRN Valium and Benadryl Patient was experiencing anxiety, tremors and difficulty falling asleep. Administered PRN Valium 5mg and Benadryl and patient tolerated well. Breathing is even and unlabored. Will continue to monitor.
--- NOTE | 2017-12-14 01:25 | NUR ---
PRN Valium and Benadryl Reassessment Patient is resting in bed with eyes closed, breathing is even and unlabored. No s/s of distress noted. Medication noted to be effective and will continue to monitor, safety measures in place.
[2017-12-14 04:00] VITALS: BP 108/61
--- NOTE | 2017-12-14 04:00 | NUR ---
CIWA and COWS Deferred Patient was noted in bed resting with eyes closed, breathing even and unlabored. Per protocol CIWA and COWS is to be assessed while patient is awake. Safety measures in please, bed lock in low position, side rails up x2, and call light within reach. Will continue to monitor.
--- NOTE | 2017-12-14 07:24 | NUR ---
End of shift Patient is a 47 year old male admitted 12/13/2017, here at [facility] for medically supervised ETOH, Benzos and Opioid withdrawal. Patient is on Fall and seizure precautions. His last CIWA was 8 and COWS was 8. Patient had PRN Valium and Benadryl during this shift. Patients O2 sat run low, interventions were initiated and patient decline, charge nurse was made aware. Patient slept for 9 hours and had a total intake of 500 ml. patient voided x1 and had no bowel movements during this shift. Patient is breathing even and unlabored and no evidence of distress. Safety measures in place, bed locked in low position, side rails up x2 and call light within reach. Will endorse to day shift.
--- NOTE | 2017-12-14 07:30 | NUR ---
Start of Shift Food Preservation Scientist received report on 47 year old male admitted to [facility] on 12/13/17 for medical management of ETOH and Opiate withdrawals. Pt endorses NKA, full code and regular diet. Denies PMH or PPH. Pt currently has yet to start any tapers, as pt was admitted yesterday evening. Pts last CIWA 8 and COWS 8, per report. Pt was administered 5 mg of Valium(withdrawals) and Benadryl(insomnia). Food Preservation Scientist encounter pt in room resting with eyes closed. Even and unlabored respirations noted. Bed in locked position with wheels locked and side rails x2. Will continue to monitor, support and encourage according to plan of care.
[2017-12-14 08:00] VITALS: BP 102/57
--- NOTE | 2017-12-14 08:00 | NUR ---
CIWA 15/COWS 13 Pt is tremulous, diaphoretic, anxious, restless and complains of nausea and chills. Will continue to monitor, support and encourage according to plan of care.
[2017-12-14] MEDS ORDERED: TUBERCULIN,PURIF.PROT.DERIV. 5 TU/0.1 ML TEST ID ONE (09:00)
[2017-12-14] MEDS: FOLIC ACID 1 MG TABLET PO SCH (09:27)
[2017-12-14] MEDS: MULTIVITAMINS,THERAPEUTIC TABLET PO SCH (09:27)
[2017-12-14] MEDS: THIAMINE HCL 100 MG TABLET PO SCH (09:27)
--- NOTE | 2017-12-14 09:27 | NUR ---
PRN - Valium Pt is diaphoretic, tremulous, anxious and restless, CIWA 15. Global Marketing Manager administered medication to order with pt tolerating well. Will continue to monitor, support and encourage according to plan of care.
--- NOTE | 2017-12-14 10:30 | NUR ---
PRN/CIWA Re-Assessment Pt is resting with eyes closed, even and unlabored respirations. Pt is diaporetic, tremulous and complains of anxiety, nausea and chills. Re-assment CIWA is 13. Will continue to monitor, support and encourage according to plan of care.
[2017-12-14] MEDS ORDERED: 4 DAY TAPER VALIUM-SERENITY PROTOCOL PO PRN (12:00)
--- NOTE | 2017-12-14 12:15 | NUR ---
CIWA 12/COWS 13 Pt is tremulous, anxious, diaphoretic and restless. Pt with complaints of nausea, myalgia and headache. Will continue to monitor, support and encourage according to plan of care.
[2017-12-14 12:26] VITALS: BP 90/43
[2017-12-14] MEDS: DIAZEPAM 5 MG TABLET PO SCH ×3 (12:42→20:00)
[2017-12-14] MEDS ORDERED: ****PATIENT'S OWN MED IH PRN (15:15)
[2017-12-14] MEDS: HYDROXYZINE PAMOATE 25 MG CAPSULE PO PRN (15:35)
[2017-12-14] MEDS: CLONIDINE HCL 0.1 MG TABLET PO PRN (15:36)
--- NOTE | 2017-12-14 15:36 | NUR ---
PRN Clonidine/Vistaril Pt complain of anxiety and requests medication Core Stripper administered medication to order with pt tolerating well. Will continue to monitor, support and encourage according to plan of care.
[2017-12-14 16:30] VITALS: BP 88/38
--- NOTE | 2017-12-14 16:30 | NUR ---
Low BP Pt BP: 88/38 on scheduled VS check, freelance writer present with tech. Pt denies any associated symptoms of hypo-tension, denies dizziness or light headedness. Pt is A/O and able to make needs known. Pt denies any needs at this time. Will continue to monitor, support and encourage according to plan of care.
--- NOTE | 2017-12-14 16:30 | NUR ---
CIWA 9/COWS 11 Pt with myalgia, stuffy nose, complaints of nausea and chills. Pt is anxious, restless and tremulous with diaphoresis. Will continue to monitor, support and encourage according to plan of care.
--- NOTE | 2017-12-14 16:36 | NUR ---
PRN Re-Assessment Pt endorses some relief, " I am feeling a bit better." Will continue to monitor, support and encourage according to plan of care.
--- NOTE | 2017-12-14 17:00 | NUR ---
Non-Administered Valium Vessel Slagman did not administer medication d/t low BP: 88/38. Pt is asymptomatic, but VS fall without of administration range. Pt is lethargic and somnolent. Pt is resting with eyes closed, even and unlabored respirations noted. Will continue to monitor, support and encourage according to plan of care.
--- NOTE | 2017-12-14 18:48 | NUR ---
End of Shift Gas Engine Operator Compressors provided report on 47 year old male admitted to [facility] on 12/13/17 for medical management of ETOH and Opiate withdrawals. Pt endorses NKA, full code and regular diet. Denies PMH or PPH. Pt started on a 4 day Valium taper this afternoon and will start a 3 day Subutex taper tomorrow, waiting 1 day per pts request. Pts last CIWA 9 and COWS 11. Pt was administered 10mg of Valium(CIWA 15) and Clonidine/Vistaril(anxiety) as PRN medications on this shift. Gas Engine Operator Compressors held pts 1700 dose of Valium d/t decreased BP and lethargy. CRN and MD made aware. Pt has been resting in bed all shift, up for meals only. Pt with a flat affect and dysphonic mood. Pt denies SI/HI. Pt with a clear thought and speech process. Pt is isolative and withdrawn. Guarded with staff and peers. Bed in locked position with wheels locked and side rails x2.
--- NOTE | 2017-12-14 19:39 | NUR ---
Start of Shift Patient Received. Per endorsement, patient continues on a modified 4 day Valium taper and is set to start on a 3 day modified Subutex taper. Patient received PRN Valium 10mg, Vistaril, and Clonidine with medications noted to be effective. Patient was reported to be withdrawn and flat with depressed affect. Last noted CIWA 9 and COWS 11. Upon rounds patient is noted to be restless in bed, verbalizing increased anxiety, irritability, chills and sweats, and verbalizing increased light sensitivity. Encouraged patient to drink fluids due to episodes of hypotension and he was able to verbalize understanding. All needs attended to promptly. Will continue to monitor.
[2017-12-14 20:00] VITALS: BP 111/69
[2017-12-14] MEDS: ONDANSETRON ODT 4 MG TAB.RAPDIS SL PRN (20:00)
--- NOTE | 2017-12-14 20:00 | NUR ---
CIWA Assessment Patient is noted with increased anxiety, agitation, restlessness, intermittent nausea, chills, sweats, and tremulous. CIWA noted to be 16 and COWS 7. Will administer medications accordingly.
--- NOTE | 2017-12-14 20:00 | NUR ---
PRN Medication Administration Patient is noted verbalizing increase nausea and inability of falling asleep. PRN Benadryl and Zofran administered. Will continue to monitor.
--- NOTE | 2017-12-14 21:00 | NUR ---
PRN Medication administration Patient is noted in bed with eyes closed. Breathing even and non labored. No signs of restlessness or facial grimacing noted. PRN Benadryl and Zofran noted to be effective. Will continue to monitor. Addendum: 12/14/17 at 2359 by ERNESTINE FLANNERY LVN PRN Medication Reassessment
[2017-12-15 00:19] VITALS: BP 116/73
[2017-12-15] MEDS: CLONIDINE HCL 0.1 MG TABLET PO PRN ×4 (00:22→23:27)
[2017-12-15] MEDS: HYDROXYZINE PAMOATE 25 MG CAPSULE PO PRN ×4 (00:22→23:28)
--- NOTE | 2017-12-15 00:25 | NUR ---
PRN Medication Administration patient is noted awake and verbalizing increased anxiety, chills, sweats, agitation, and inability of falling back to sleep due to increased signs and symptoms. PRN Clonidine and Vistaril administered. Will continue to monitor.
--- NOTE | 2017-12-15 01:30 | NUR ---
PRN Medication Reassessment patient is noted in bed with eyes closed. Breathing even and non labored. No restlessness or discomfort noted. PRN Clonidine and Vistaril noted to be effective. Will continue to monitor.
--- NOTE | 2017-12-15 04:20 | NUR ---
CIWA, COWS, and VITALS Patient is noted in bed with eyes closed. Breathing even and non labored. patient refused vitals due to patients complications of sleeping. CIWA and COWS not able to be completed as per order. All needs attended to promptly. Will continue to monitor.
--- NOTE | 2017-12-15 05:37 | NUR ---
CIWA, COWS, and VITALS Patient is noted in bed with eyes closed. Breathing even and non labored. patient refused vitals due to patients complications of sleeping. CIWA and COWS not able to be completed as per order. All needs attended to promptly. Will continue to monitor. Addendum: 12/15/17 at 0540 by ERNESTINE FLANNERY LVN ENTERED IN ERROR
[2017-12-15 06:10] LABS: HEPATITIS B SURFACE AG Negative (Negative)
--- NOTE | 2017-12-15 07:22 | NUR ---
End of Shift Patient is noted in bed with eyes closed. Breathing even and non labored. Patient continues on a modified 4 day Valium taper and is set to start on a 3 day modified Subutex taper today at 0900. Patient received PRN Benadryl, Zofran, Vistaril, Clonidine with medications noted to be effective. Patient was noted with increased nausea, anxiety, tremulous, chills, sweats, insomnia, restlessness, irritability, with flat, depressed affect. Lat noted CIWA 12 and COWS 6. Patient noted to sleep a total of 10 hours. Encouraged patient to drink fluids as tolerated. All needs attended to promptly. Will endorse to continue to monitor.
[2017-12-15 08:00] VITALS: BP 118/73
--- NOTE | 2017-12-15 08:00 | NUR ---
START OF SHIFT COWS CIWA ASSESSMENT Pt 47 y/o male admitted for eoth, benzo, and opiate withdrawal. Pt received in room on bed with eyes closed resting, but arousable to name. Pt alert and oriented to name, place, and time. Perrla. Skin warm and moist to touch. Respirations even and unlabored. Appears disheveled and unkempt. Hair uncombed. Clothes scattered throughout the room. Encouraged to maintain hygiene. Anxious and restless. Pressured speech. Easily irritable and agitated. Bilateral hand tremors noted. Complaints of generalized discomfort. cows=12 ciwa=15 @ 0800. It was reported that pt slept for 10 hours last night. Pt states it was intermittent sleep and would wake up almost every hour. cows=6 ciwa=12 @0000. Pt is on a 4 day valium taper and is on day 2. Pt also on a 3 day subutex taper and is on day 1. Bed on lowest position with side rails x2 up for safety. Call light within reach.
[2017-12-15] MEDS: MULTIVITAMINS,THERAPEUTIC TABLET PO SCH (08:02)
[2017-12-15] MEDS: FOLIC ACID 1 MG TABLET PO SCH (08:03)
[2017-12-15] MEDS: THIAMINE HCL 100 MG TABLET PO SCH (08:03)
[2017-12-15] MEDS: DIAZEPAM 5 MG TABLET PO SCH ×3 (08:03→20:51)
--- NOTE | 2017-12-15 08:06 | NUR ---
PRN CATAPRES VISTARIL Pt very anxious and restless. Easily irritable and agitated. Pacing. Bilateral clenched fist noted. Vistaril po prn per MD order given. Catapres po prn per MD order given.
[2017-12-15] MEDS ORDERED: 3 DAY TAPER BUPRENORPHINE -SERENITY PROTOCOL SL PRN (09:00)
--- NOTE | 2017-12-15 09:00 | NUR ---
NSG ENTRY Encouraged po fluid intake.
--- NOTE | 2017-12-15 09:06 | NUR ---
PRN CATAPRES VISTARIL Pt states medications are effective. Pt observed laying on bed in room watching television.
[2017-12-15] MEDS: BUPRENORPHINE HCL 2 MG TAB.SUBL SL SCH ×2 (09:19→20:52)
[2017-12-15 12:00] VITALS: BP 99/52
--- NOTE | 2017-12-15 12:00 | NUR ---
COWS CIWA ASSESSMENT cows=11 ciwa=13. Bilateral hand tremors noted. Anxious and restless. Pressured speech. Irritable and agitated. Makes short abrupt responses. Complaints of generalized discomfort.
--- NOTE | 2017-12-15 12:54 | NUR ---
Therapist prompted client to attend group therapy sessions.
--- NOTE | 2017-12-15 13:00 | NUR ---
NSG ENTRY Encouraged po fluid intake.
--- NOTE | 2017-12-15 14:11 | NUR ---
PRN CATAPRES VISTARIL Pt agitated and irritable. Very anxious and restless. Pressured speech noted. Pt states, " I'm very annoyed!". Vistaril po prn per MD order given and tolerated well. Catapres po prn per MD order given and tolerated well.
--- NOTE | 2017-12-15 15:11 | NUR ---
PRN CATAPRES VISTARIL Pt states medications effective. Pt observed on bed in room with eyes closed but arousable to name.
[2017-12-15 16:00] VITALS: BP 91/58
--- NOTE | 2017-12-15 16:00 | NUR ---
COWS CIWA ASSESSMENT cows=11 ciwa=10. Anxious and restless. Pressured speech. Easily irritable and agitated. Bilateral hand tremors. Complaints of intermittent perspiration and generalized discomfort.
--- NOTE | 2017-12-15 18:25 | NUR ---
END OF SHIFT Pt 47 y/o male admitted for etoh, benzo's, and opiate withdrawal. Pt alert and oriented to name, place, and time. Perrla. Skin warm and moist to touch. Respirations even and unlabored. Appears disheveled and unkempt. Clothes, empty food wrappers, and empty drink bottles scattered throughout the room. Encouraged to maintain hygiene. Anxious and restless. Pressured speech. Easily irritable and agitated. Bilateral hand tremors noted. Complaints of intermittent perspiration and chills noted. Isolative to room today with no peer interaction. Pt did not attend group activity. No motivation for self care. Last cows=11 ciwa= 10@1600. Pt is on a 4 day valium taper and is on day 2. Pt also on a 3 day subutex taper and is on day 1. Bed on lowest position with side rails x 2 up for safety. Call light within reach.
--- NOTE | 2017-12-15 19:30 | NUR ---
START OF SHIFT Received patient awake, alert, and oriented x4. Per endorsement, patient is a 47 year old male admitted for medically supervised detox from ETOH (whiskey), benzos, and opiates. Patient presented with no past medical history, NKA, regular diet, and is full code. Last COWS is 11 and CIWA score is 10 taken at 1600. Upon assessment, he was seen lying in bed with bed in a low, locked position and bilateral side rails up watching television. Patient reported anxiety and pain at a level of 5/10 in his back and bilateral lower extremities. Will continue to monitor.
--- NOTE | 2017-12-15 20:00 | NUR ---
COWS= 12, CIWA= 11 Patient is noted to be anxious, restless, depressed, irritable, and agitated. He reports hand tremors, intermittent perspiration, and generalized discomfort. Will continue to monitor.
[2017-12-15 20:14] VITALS: BP 112/74
[2017-12-15] MEDS: ONDANSETRON ODT 4 MG TAB.RAPDIS SL PRN (20:51)
--- NOTE | 2017-12-15 20:51 | NUR ---
PRN ZOFRAN ADMINISTRATION Patient reported symptoms of nausea. No emesis noted. Patient requested Zofran and PRN medication administered. Will reassess in one hour.
--- NOTE | 2017-12-15 21:51 | NUR ---
PRN ZOFRAN REASSESSMENT Patient noted spending time in activity room watching television in the presence of other patients. Nausea reassessed and patient reported complete relief from nausea. PRN Zofran administration noted to be effective. Will continue to monitor.
[2017-12-15 23:24] VITALS: BP 115/78
[2017-12-15] MEDS: diphenhydrAMINE 50 MG CAPSULE PO PRN (23:27)
--- NOTE | 2017-12-15 23:30 | NUR ---
PRN CLONIDINE, VISTARIL, AND BENADRYL ADMINISTRATION Patient verbalizes inability to fall asleep, agitation, anxiety, chills, and restlessness. PRN medications Clonidine, Vistaril, and Benadryl administered. Will reassess in one hour.
--- NOTE | 2017-12-16 | NUR ---
VITALS AND COWS/CIWA DEFERRED Patient noted lying in bed with HOB and bilateral side rails up and bed in a locked position. Noted with eyes closed and respirations even and unlabored. Vital signs refused and COWS/CIWA assessment deferred. Will continue to monitor.
--- NOTE | 2017-12-16 00:30 | NUR ---
PRN CLONIDINE, VISTARIL, AND BENADRYL REASSESSMENT Patient is noted in bed watching television with lights off and bed in a locked position. No c/o pain, anxiety, nausea, restlessness, or chills at this time. Will continue to monitor.
[2017-12-16] MEDS ORDERED: HYDROXYZINE PAMOATE 25 MG CAPSULE PO ONE (04:15)
[2017-12-16 04:29] VITALS: BP 119/76
[2017-12-16] MEDS: ONDANSETRON ODT 4 MG TAB.RAPDIS SL PRN ×2 (04:40→16:18)
--- NOTE | 2017-12-16 04:40 | NUR ---
PRN MEDICATION ADMINISTRATION ZOFRAN Patient reported S/S of anxiety, nausea, and heartburn. PRN medications Vistaril, Maalox, and Zofran were pulled from [facility]. Upon entering room, patient stated I dont want the Vistaril or anything else. I wont be able to stomach it. Just give me the Zofran. PRN Zofran ODT given. Will reassess effectiveness in one hour.
--- NOTE | 2017-12-16 05:40 | NUR ---
PRN ZOFRAN REASSESSMENT Patient noted lying in bed with HOB and bilateral side rails up. Patient verbalized improvement in nausea. Patient refused administration of any other medications for alleviation of symptoms. Will continue to monitor.
--- NOTE | 2017-12-16 07:03 | NUR ---
END OF SHIFT Patient is a 47 year old male admitted for medically supervised detox from ETOH (whiskey), benzos, and opiates. Patient has been experiencing increased symptoms of nausea, chills, anxiety, restlessness, irritability, and sneezing. PRN medications Zofran, Clonidine, Vistaril, Benadryl, and Zofran ODT administered throughout this shift for increased nausea, anxiety, restlessness, and insomnia with effectiveness noted. Last COWS is 14 and last CIWA is 13 taken at 0400. Patient slept for 7 hours during shift. Endorsed to oncoming AM nurse.
[2017-12-16 08:00] VITALS: BP 117/64
--- NOTE | 2017-12-16 08:00 | NUR ---
START OF SHIFT COWS CIWA ASSESSMENT Pt 47 y/o male admitted for eoth, benzo, and opiate withdrawal. Pt received in room on bed with eyes closed resting, but arousable to name. Pt alert and oriented to name, place, and time. Perrla. Skin warm and moist to touch. Respirations even and unlabored. Appears disheveled and unkempt. Clothes and empty drink bottles scattered throughout the room. Encouraged to maintain hygiene. Anxious and restless. Pressured speech. Irritable this morning. Complaints of nausea. Bilateral hand tremors noted. Complaints of generalized discomfort. cows=13 ciwa=11 @ 0800. It was reported that pt slept for 7 hours last night. cows=14 ciwa=13 @0400. Pt is on a 4 day valium taper and is on day 3. Pt also on a 3 day subutex taper and is on day 2. Bed on lowest position with side rails x2 up for safety. Call light within reach.
--- NOTE | 2017-12-16 08:30 | NUR ---
PRN CATAPRES VISTARIL Pt anxious, restless, and very irritable. Raising voice. Catapres po prn per MD order given and vistaril po prn per MD order given . Pt was selective with medication this morning.
[2017-12-16] MEDS: DIAZEPAM 5 MG TABLET PO SCH ×2 (08:43→21:53)
[2017-12-16] MEDS: THIAMINE HCL 100 MG TABLET PO SCH ×2 (08:44→08:47)
[2017-12-16] MEDS: CLONIDINE HCL 0.1 MG TABLET PO PRN ×2 (08:44→23:17)
[2017-12-16] MEDS: HYDROXYZINE PAMOATE 25 MG CAPSULE PO PRN ×2 (08:44→23:17)
[2017-12-16] MEDS: MULTIVITAMINS,THERAPEUTIC TABLET PO SCH ×2 (08:44→08:47)
[2017-12-16] MEDS: FOLIC ACID 1 MG TABLET PO SCH (08:47)
[2017-12-16] MEDS: BUPRENORPHINE HCL 2 MG TAB.SUBL SL SCH ×3 (09:57→21:24)
--- NOTE | 2017-12-16 10:30 | NUR ---
PRN CATAPRES VISTARIL EVAL Pt states medications effective.
[2017-12-16 12:00] VITALS: BP 109/67
--- NOTE | 2017-12-16 12:00 | NUR ---
COWS CIWA ASSESSMENT cows=10 ciwa=11. Bilateral hand tremors noted. Anxious and restless. Pressured speech noted. Complaints of generalized body aches and discomfort.
--- NOTE | 2017-12-16 13:49 | NUR ---
therapist prompted client to attend group therapy.
[2017-12-16 16:00] VITALS: BP 114/70
--- NOTE | 2017-12-16 16:00 | NUR ---
COWS CIWA ASSESSMENT cows=10 ciwa=11. Anxious and restless. Bilateral hand tremors noted. Pressured speech. Irritable and agitated. Complaints of generalized discomfort.
--- NOTE | 2017-12-16 16:19 | NUR ---
PRN ZOFRAN Pt states feels nauseous. Zofran odt prn per MD order given.
--- NOTE | 2017-12-16 17:19 | NUR ---
PRN ZOFRAN EVAL Pt denies nausea.
--- NOTE | 2017-12-16 19:10 | NUR ---
END OF SHIFT Pt 47 y/o male admitted for etoh, benzos, and opiate withdrawal. Pt alert and oriented to name, place, and time. Perrla. Skin warm and moist to touch. Respirations even and unlabored. Pt appears disheveled. Clothes and empty drink bottles scattered throughout the room. Encouraged to maintain hygiene. Anxious and restless. Pressured speech. Easily irritable and agitated. Bilateral hand tremors noted. Complaints of generalized discomfort. Isolative to room today with no peer interaction. Pt did not attend group activity. No motivation for self care. Last cows=10 ciwa=11 @1600. Pt is on a 4 day valium taper and is on day 3. Pt also on a 3 day subutex taper and is on day 2. Bed on lowest position with side rails x 2 up for safety. Call light within reach.
--- NOTE | 2017-12-16 19:40 | NUR ---
START OF SHIFT NOTE Rcvd report from outgoing nurse. Pt is a 47 y/o male A/O to person, place, time, and purpose. Pt was admitted for medically supervised withdrawal from ETOH, Xanax, and Opiates. Pt is on day 3 of 4 day Valium and 3 day Subutex taper. Pt has been presenting w/ anxiety, flat affect, depressed and withdrawn mood, sweats, tremors, and insomnia. PRN Zofran, Clonidine, and Vistaril were given and noted effective by outgoing nurse. Last CIWA 11 and COWS 10 @ 1600. Call light is within reach. Pt will continue to be monitored and needs met.
--- NOTE | 2017-12-16 20:02 | NUR ---
CIWA AND COWS ASSESSMENT CIWA 11 and COWS 10. . Pt has been presenting w/ anxiety, flat affect, depressed and withdrawn mood, sweats, tremors, and insomnia. V/S: T:97.7, P:78, RR:18, SPO2:97, BP:109/53.
[2017-12-16 20:04] VITALS: BP 109/53
[2017-12-16] MEDS ORDERED: TRAZODONE 50 MG TABLET PO ONE (22:45)
[2017-12-16] MEDS: diphenhydrAMINE 50 MG CAPSULE PO PRN (23:16)
--- NOTE | 2017-12-16 23:16 | NUR ---
PRN CLONIDINE, BENADRYL, VISTARIL, AND TRAZODONE ADMINISTRATION Clonidine 0.1mg and Vistaril 50mg for anxiety, Benadryl 50mg for sleep, and Trazodone 50mg for agitation were given. Will reassess pt in 1 hr.
[2017-12-17 00:09] VITALS: BP 111/62
--- NOTE | 2017-12-17 00:13 | NUR ---
CIWA AND COWS ASSESSMENT CIWA 10 and COWS 9. Pt has been presenting w/ anxiety, flat affect, depressed and withdrawn mood, sweats, tremors, and insomnia. V/S: T:97.9, P:77, RR:16, SPO2:99, BP:111/62.
--- NOTE | 2017-12-17 00:16 | NUR ---
PRN CLONIDINE, BENADRYL, VISTARIL, AND TRAZODONE REASSESSMENT Pt is in bed watching TV. Pt states inability to fall asleep. Pt asked to give it a little more time to be effective and to turn on music instead of regular TV along w/ relaxation deep breathing. Pt agreed. Will continue to monitor pt.
--- NOTE | 2017-12-17 04:12 | NUR ---
CIWA AND COWS ASSESSMENT CIWA 10 and COWS 9Pt has been presenting w/ anxiety, flat affect, depressed and withdrawn mood, sweats, tremors, and insomnia. V/S refused. .
--- NOTE | 2017-12-17 07:12 | NUR ---
END OF SHIFT NOTE Endorsed pt to oncoming nurse. Pt is a 47 y/o male A/O to person, place, time, and purpose. Pt was admitted for medically supervised withdrawal from ETOH, Xanax, and Opiates. Pt completed day 3 of 4 day Valium and 3 day Subutex taper. Pt continued presenting w/ anxiety, flat affect, depressed and withdrawn mood, sweats, tremors, and insomnia. Pt denies any S/I or H/I. PRN Clonidine and Vistaril for anxiety, Benadryl for sleep, and Trazodone for agitation were given and noted ineffective. Pts fluid intakes was 855ml and slept for 1hr. Last CIWA 10 and COWS 9 @ 0400. Call light is within reach.
[2017-12-17 08:00] VITALS: BP 114/63
--- NOTE | 2017-12-17 08:00 | NUR ---
Start of Shift Notes/COWS/CIWA Assessment: Received report from night nurse. Patient is a 47 year old male admitted for BZO/ETOH and opiate withdrawal who was placed on a 5-day Valium and 5-day Subutex taper as ordered. Patient is on a cardiac/diabetic diet. Per night report, patient was given PRN Clonidine, Robaxin and Vistaril as ordered. Did not sleep well during the night and only obtained 2 hours of sleep. Last COWS 8/CIWA 12. Patient is alert and verbally responsive. Oriented x 4. Seen ambulating in the hallways with SPC. Appears disheveled. Anxious, sweating and with worried facial expressions. He complains of difficulty sleeping and difficulty concentrating. COWS 8/CIWA 12. Educated patient on his current plan of care for the day and his medication regimen. Encouraged oral fluid intake and encouraged group participation to learn new skills to prevent relapse. All needs met and attended. Will continue to monitor.
[2017-12-17] MEDS ORDERED: DIAZEPAM 5 MG TABLET PO SCH (09:00)
[2017-12-17] MEDS: FOLIC ACID 1 MG TABLET PO SCH (09:00)
[2017-12-17] MEDS ORDERED: BUPRENORPHINE HCL 2 MG TAB.SUBL SL SCH ×2 (09:00)
[2017-12-17] MEDS: MULTIVITAMINS,THERAPEUTIC TABLET PO SCH (09:00)
[2017-12-17] MEDS: THIAMINE HCL 100 MG TABLET PO SCH (09:00)
--- NOTE | 2017-12-17 09:30 | NUR ---
MVI/Folic Acid/B1 not administered: Patient refused 0900 meds as mentioned above except for Subutex 4 mg and Valium 5 mg. Patient states "It makes my stomach feel weird." Explained risk and benefits but patient still refused. Offered 3 x. Still refused. Will continue to monitor.
[2017-12-17] MEDS ORDERED: MIRT15TA7 PO (11:35)
[2017-12-17 12:00] VITALS: BP 114/83
--- NOTE | 2017-12-17 12:13 | NUR ---
COWS/CIWA Assessment: COWS 8/CIWA 9, patient continues to present with s/s of withdrawal m/b gross tremors, sweating, anxiety, fatigue, chills, cold sweats, hot flashes, difficulty concentrating, insomnia and generalized discomfort. Will medicate patient as ordered.
[2017-12-17 16:00] VITALS: BP 119/69
--- NOTE | 2017-12-17 16:30 | NUR ---
COWS/CIWA Assessment: COWS 8/CIWA 9, patient continues to present with s/s of withdrawal m/b gross tremors, sweating, anxiety, fatigue, chills, cold sweats, hot flashes, difficulty concentrating, insomnia and generalized discomfort. He was able to participate in group and activities. Will medicate patient as ordered.
--- NOTE | 2017-12-17 19:06 | NUR ---
End of Shift Notes: Patient completed his 4-day Valium taper and modified 3-day Subutex taper as ordered. No adverse reactions noted. VS monitored closely. No significant abnormalities noted. Withdrawal symptoms were closely monitored. Initial COWS 9/CIWA 10, patient presented with gross tremors, anxiety, agitation, sweating, insomnia, difficulty concentrating, fatigue, worried facial expression, and generalized discomfort. Last COWS 8/CIWA 9. Patient verbalizes that Valium and Subutex has been effective in reducing his withdrawal symptoms. Patient was started on Remeron for sleep. Able to participate in group and activities despite his withdrawal symptoms. Appetite fair. All needs met and attended. Will continue to monitor closely.
--- NOTE | 2017-12-17 19:36 | NUR ---
START OF SHIFT NOTE Rcvd report from outgoing nurse. Pt is a 47 y/o male A/O to person, place, time, and purpose. Pt was admitted for medically supervised withdrawal from ETOH, Benzodiazepines, and Opiates. Pt completed a 4 day Valium and 3 day Subutex taper. Pt has been presenting w/ anxiety, restlessness, flat affect, and muscle pain. Pt rcvd no PRN medications during the previous shift. Last CIWA 9 and COWS 8 @ 1600. Call light is within reach. Pt will continue to be monitored and needs met.
[2017-12-17 20:02] VITALS: BP 134/76
--- NOTE | 2017-12-17 20:02 | NUR ---
CIWA AND COWS ASSESSMENT CIWA 9 and COWS 8. . Pt has been presenting w/ anxiety, restlessness, flat affect, and muscle pain. V/S: T:98.4, P:69, RR:14, SPO2:95, BP:134/76.
[2017-12-17] MEDS ORDERED: METHOCARBAMOL 750 MG TABLET PO PRN (20:30)
[2017-12-17] MEDS ORDERED: MIRTAZAPINE 15 MG TABLET PO SCH (21:00)
[2017-12-17] MEDS: CLONIDINE HCL 0.1 MG TABLET PO PRN (22:53)
[2017-12-17] MEDS: diphenhydrAMINE 50 MG CAPSULE PO PRN (22:54)
[2017-12-17] MEDS: HYDROXYZINE PAMOATE 25 MG CAPSULE PO PRN (22:54)
--- NOTE | 2017-12-17 22:54 | NUR ---
PRN BENADRYL, CLONIDINE, VISTARIL, AND ROBAXIN ADMINISTRATION Benadryl 50mg for sleep, Clonidine 0.1mg and Vistaril 50mg for anxiety, and Robaxin 750mg for muscle aches/myalgia were given. Will reassess pt in 1hr.
--- NOTE | 2017-12-17 23:54 | NUR ---
PRN BENADRYL, CLONIDINE, VISTARIL, AND ROBAXIN REASSESSMENT Pt is in bed w/ his eyes closed. Pt's respirations are unlabored and even.
--- NOTE | 2017-12-18 00:06 | NUR ---
CIWA AND COWS DEFERRED Pt is in bed w/ his eyes closed. Pt's respirations are unlabored and even.
--- NOTE | 2017-12-18 01:00 | NUR ---
CIWA AND COWS ASSESSMENT CIWA 8 and COWS 7. . Pt has been presenting w/ anxiety, restlessness, flat affect, and muscle pain. V/S refused.
--- NOTE | 2017-12-18 04:03 | NUR ---
CIWA AND COWS DEFERRED Pt is in bed w/ his eyes closed. Pt's respirations are unlabored and even.
--- NOTE | 2017-12-18 07:17 | NUR ---
END OF SHIFT NOTE Endorsed pt to oncoming nurse. Pt is a 47 y/o male A/O to person, place, time, and purpose. Pt was admitted for medically supervised withdrawal from ETOH, Benzodiazepines, and Opiates. Pt completed a 4 day Valium and 3 day Subutex taper. Pt is being discharged 12/18. Pt continued presenting w/ anxiety, restlessness, flat affect, and muscle pain. Pt denies any S/I or H/I. PRN Benadryl for sleep, Clonidine and Vistaril for anxiety, and Robaxin for muscle pain were given and noted effective. Pts fluid intake was 1300ml and he slept for 7hrs. Last CIWA 8 and COWS 7 @ 0100. Call light is within reach.
[2017-12-18] MEDS: ONDANSETRON ODT 4 MG TAB.RAPDIS SL PRN (07:31)
--- NOTE | 2017-12-18 07:31 | NUR ---
START OF SHIFT NOTE Received report from night nurse, patient is 47 year old male admitted for Opioids, Benzo, ETOH withdrawal and completed 4 day Valium/3 day Subutex taper tolerated well. Per endorsement patient received PRN Benadryl, Clonidine, Vistaril, Robaxin effective per night nurse, slept for 5 hours and last CIWA score was 8, COWS-7. Received patient alert awake oriented x4 with sad facial expression, anxious, agitated, nauseated, bilateral hand tremors. Patient is due for scheduled medications and discharge today. PRN Zofran 4mg SL administered as ordered. Will cont to monitor and reassess. All safety measures in place, Call light within reach.
[2017-12-18 08:00] VITALS: BP 139/89
--- NOTE | 2017-12-18 08:01 | NUR ---
ZOFRAN REASSESSMENT Per patient nausea improved, Zofran was effective.
[2017-12-18] MEDS: FOLIC ACID 1 MG TABLET PO SCH (08:32)
[2017-12-18] MEDS: MULTIVITAMINS,THERAPEUTIC TABLET PO SCH (08:33)
[2017-12-18] MEDS: THIAMINE HCL 100 MG TABLET PO SCH (08:34)
[2017-12-18 08:39] VITALS: BP 139/89
[2017-12-18] MEDS: CLONIDINE HCL 0.1 MG TABLET PO PRN (08:39)
--- NOTE | 2017-12-18 08:39 | NUR ---
PRN CLONIDINE Patient reported increased in anxiety, agitation, sweats. PRN Clonidine 0.1mg PO administered as ordered. Will cont to monitor and reassess.
--- NOTE | 2017-12-18 09:34 | NUR ---
CLONIDINE REASSESSMENT Patient reported Clonidine was effective in controlling anxiety, agitation and sweats.
--- NOTE | 2017-12-18 09:35 | NUR ---
DISCHARGE NOTE Patient is alert awake oriented discharge from [facility] in stable condition. Vital signs WNL. Skin intact warm and dry to touch. Patient denies any SI/HI. All discharge paper work completed signed and dated. All belongings returned to the patient including his home medication and prescriptions. Patient discharge from [facility] to [facility] in stable condition.
== END 2017-12-18 09:35 | disposition other institution (70) | DRG 895 ==
LOC: SRC 20:16
PROVIDERS: ADMIT Family Medicine Addiction Medicine; ATTEND Family Medicine Addiction Medicine
PROC: HZ2ZZZZ Detoxification Services for Substance Abuse Treatment (ICD-10-PCS; principal; 2017-12-13)
PROC: HZ31ZZZ Individual Counseling for Substance Abuse Treatment, Behavioral (ICD-10-PCS; 2017-12-15)
PROC: HZ41ZZZ Group Counseling for Substance Abuse Treatment, Behavioral (ICD-10-PCS; 2017-12-17)
DX: F10.230 Alcohol dependence with withdrawal, uncomplicated (principal); F11.23 Opioid dependence with withdrawal; Y90.0 Blood alcohol level of less than 20 mg/100 ml; F13.230 Sedative, hypnotic or anxiolytic dependence with withdrawal, uncomplicated; F17.210 Nicotine dependence, cigarettes, uncomplicated; F12.10 Cannabis abuse, uncomplicated; J45.909 Unspecified asthma, uncomplicated
CPT/HCPCS: 36415; 70030-TC; 80307; 80346; 80349; 80361; 83690; 83735; 84443; 85025; 86592; 86705; 86803; 87340; 87806; G0480; J3535; Q0162; Q0163